=== PATIENT | male | born 1940 | race Hispanic/Latino ===

== ENCOUNTER → 2020-08-30 | Outpatient (CLI) | payer OTHER, MEDICARE ==
[~2020-08-30] MED LIST: AMLO-258 PO; ASPI-556 PO; ATEN100T PO; OMEG-53 PO; SIMV-46 PO; VITAMIN B12 PO
== END | disposition home or self-care (01) ==
LOC: RAH 13:57
PROVIDERS: ATTEND Urology
DX: N40.0 Benign prostatic hyperplasia without lower urinary tract symptoms (principal); N32.0 Bladder-neck obstruction
CPT/HCPCS: 36415; 76770; 84153; 84154